=== PATIENT | female | born 2000 | race Caucasian/White ===

== ENCOUNTER 2020-03-12 14:55 | Emergency (ER) | payer MEDICAID ==
[2020-03-12] MEDS ORDERED: HYDROmorphone 1 MG/ML Syringe IM ONE (15:13)
--- NOTE | 2020-03-12 15:18 | EDM.PDOC ---
ED HPI GENERAL MEDICAL PROBLEM - General Chief Complaint: Upper Extremity Injury/Pain Stated Complaint: RIGHT SHOULDER POSSIBLE DISLOCATION Time Seen by Provider: 03/12/20 15:05 Source of Information: Reports: Patient History Limitations: Reports: Other (no old records) - History of Present Illness INITIAL COMMENTS - FREE TEXT/NARRATIVE: 19 yo female is visiting here from [place]. She was pulling her shorts up and felt sudden severe pain in her R shoulder. 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 Does not have a hx of dislocation, but is concerned today about this. Has some tingling in her R hand. No tx before arrival. Onset: Today Onset Date: 03/12/20 Onset Time: 14:30 Duration: Minutes:, Constant Location: Reports: Upper Extremity, Right Quality: Reports: Ache Severity: Moderate Improves with: Reports: Rest Worsens with: Reports: Movement Context: Reports: Trauma Associated Symptoms: Reports: No Other Symptoms Treatments MANAGER BALANCE: Reports: Other (see below) (none) Right Shoulder Pain Score (Numeric/FACES): 10 - Related Data Allergies Allergy/AdvReac Type Severity Reaction Status Date / Time No Known Allergies Allergy Verified 03/12/20 15:13 Home Meds: Home Meds Sertraline [Zoloft] 25 mg PO BEDTIME 03/12/20 [History] traZODone 100 mg PO BEDTIME 03/12/20 [History] Review of Systems - Review of Systems Review Of Systems: Comprehensive ROS is negative, except as noted in HPI. Constitutional: Reports: No Symptoms Musculoskeletal: Reports: Shoulder Pain (right) Skin: Reports: No Symptoms Neurological: Reports: Tingling (R hand/arm) Psychiatric: Reports: No Symptoms ED EXAM, GENERAL - Physical Exam Exam: See Below Exam Limited By: No Limitations General Appearance: Alert, WD/WN, Mild Distress (crying) Extremities: Normal Inspection, No Pedal Edema, Arm Pain (R shoulder), Limited Range of Motion (due to apparent pain). No: Normal Range of Motion, Non-Tender , Increased Warmth, Redness Neurological: Alert, Oriented, CN II-XII Intact, Normal Cognition, No Motor/ Sensory Deficits Psychiatric: Tearful Skin Exam: Warm, Dry, Intact, Normal Color, No Rash Course - Vital Signs Last Recorded V/S: Last Vital Signs Temp 36.1 C 03/12/20 15:11 Pulse 75 03/12/20 15:11 Resp 18 03/12/20 15:11 BP 131/62 03/12/20 15:11 Pulse Ox 96 03/12/20 15:11 - Orders/Labs/Meds Orders: Active Orders 24 hr Category Date Time Status Shoulder 1V Rt [CR] Stat Exams 03/12/20 15:10 Taken Meds: Medications Discontinued Medications Generic Name Dose Route Start Last Admin Trade Name Melani PRN Reason Stop Dose Admin Hydromorphone HCl 1 mg 03/12/20 15:13 03/12/20 15:21 Dilaudid IM 03/12/20 15:14 1 mg ONETIME ONE Administration - Radiology Interpretation Free Text/Narrative:: R shoulder X-ray-neg Departure - Departure Time of Disposition: 16:10 Disposition: Home, Self-Care 01 Condition: Fair Clinical Impression: Shoulder pain Qualifiers: Chronicity: acute Laterality: right Qualified Code(s): M25.511 - Pain in right shoulder - Discharge Information *PRESCRIPTION DRUG MONITORING PROGRAM REVIEWED*: No *COPY OF PRESCRIPTION DRUG MONITORING REPORT IN PATIENT SANDRA: No Instructions: Shoulder Pain Referrals: PCP,None [Primary Care Provider] - Forms: ED Department Discharge Additional Instructions: Wear your sling at all times. Take ibuprofen 600 mg every 6 hrs and acetaminophen 1000 mg every 6 hrs for pain relief. F/U with orthopedics enoc for further evaluation. Sepsis Event Note - Evaluation Sepsis Screening Result: No Definite Risk - Focused Exam Vital Signs: Vital Signs Temp Pulse Resp BP Pulse Ox 03/12/20 15:11 36.1 C 75 18 131/62 96 03/12/20 15:10 36.1 C 75 18 131/62 96 Date Exam was Performed: 03/12/20 Time Exam was Performed: 15:53 - My Orders Last 24 Hours: My Active Orders 03/12/20 15:10 Shoulder 1V Rt [CR] Stat - Assessment/Plan Last 24 Hours: My Active Orders 03/12/20 15:10 Shoulder 1V Rt [CR] Stat
--- NOTE | 2020-03-12 16:33 | CR ---
Shoulder 1V Rt CLINICAL HISTORY: Possible dislocation FINDINGS: There is no acute fracture or dislocation in the right shoulder. Articular surfaces are smooth. IMPRESSION: Limited single view study with lordotic positioning. No fracture or dislocation seen.
== END 2020-03-12 16:07 | disposition home or self-care (01) ==
LOC: JP.ED 14:55
DX: M25.511 Pain in right shoulder (principal); Z79.899 Other long term (current) drug therapy
CPT/HCPCS: 73020; 96372; 99283; J1170